=== PATIENT | female | born 1985 ===

== ENCOUNTER 2019-04-09 06:06 | Inpatient (IN) | payer MEDICAID ==
[2019-04-09] MEDS ORDERED: OXYTOCIN 20 UNIT/1000ML DRIP 20,000 MILLIUNITS/1,000 ML BAG IV ONE (07:05)
[2019-04-09] MEDS ORDERED: LACTATED RINGERS 1,000 ML IV ONE (07:52)
[2019-04-09] MEDS ORDERED: OXYTOCIN 20 UNIT/1000ML DRIP 20 UNITS/1,000 ML BAG IV SCH ×2 (08:00→11:00)
[2019-04-09 08:16] LABS: Basophils % (Auto) 0.1 % (0.0-1.8); Eosinophils % (Auto) 0.2 % (0.0-4.3); Hematocrit 35.3 % (30.3-42.9); Hemoglobin 11.9 gm/dl (10.1-14.3); Lymphocytes # (Auto) 1.5 K/mm3 (1.2-5.4); Lymphocytes % (Auto) 8.6 % (13.4-35.0); Mean Corpuscular HGB Conc 34 % (30-34); Mean Corpuscular Volume 88 fl (79-97); Monocytes # (Auto) 0.7 K/mm3 (0.0-0.8); Monocytes % (Auto) 4.2 % (0.0-7.3); Platelet Count 171 K/mm3 (140-440); Red Blood Count 4.03 M/mm3 (3.65-5.03); Red Cell Distribution Width 15.3 % (13.2-15.2)
[2019-04-09] MEDS ORDERED: AMPICILLIN/NS 2 GM/100 ML 2 GM/100 ML BAG IV ONE (08:38)
[2019-04-09 08:39] LABS: Alanine Aminotransferase 10 units/L (7-56); Uric Acid 4.6 mg/dL (3.5-7.6)
[2019-04-09] MEDS ORDERED: MINERAL OIL 30 ML ORAL LIQD ONE (08:51)
[2019-04-09] MEDS ORDERED: MINERAL OIL 30 ML ORAL LIQD PO PRN ×2 (09:00→22:00)
[2019-04-09] MEDS ORDERED: OXYTOCIN DRIP 30,000 MILLIUNITS/500 ML BAG IV ONE (09:06)
[2019-04-09] MEDS ORDERED: LIDOCAINE (2%) 20 MG/1 ML VIAL 20 ML MDV INFILTRATI ONE (09:47)
--- NOTE | 2019-04-09 10:37 | History and Physical Report ---
History of Present Illness Date of examination: 04/09/19 Date of admission: 04/09/19 06:07 Chief complaint: Intense Labor Pains History of present illness: States she got care at [facility] (no records available), States her course was complicated by Anemia and GDM A1. Past History Past Medical History: no pertinent history Past Surgical History: other (arm Sx in 2003) Family/Genetic History: diabetes (Mother and MGM) Social history: no significant social history, single - Obstetrical History Expected Date of Delivery: 05/05/19 Actual Gestation: 36 Week(s) 2 Day(s) : 2 Spontaneous Abortions: 1 Medications and Allergies Allergies Allergy/AdvReac Type Severity Reaction Status Date / Time No Known Allergies Allergy Unverified 04/08/19 10:45 Home Medications Medication Instructions Recorded Confirmed Last Taken Type labetaloL [Labetalol 200mg TAB] 200 mg PO BID 30 Days #60 tablet 04/08/19 Unknown Rx Active Meds: Active Medications Acetaminophen/Hydrocodone Bitart ([place] 5/325) 2 each PO Q6H PRN PRN Reason: Pain, Moderate (4-6) Bisacodyl (Dulcolax) 10 mg WI BID PRN PRN Reason: Constipation Diphenhydramine HCl (Benadryl) 25 mg PO Q6H PRN PRN Reason: Itching Ephedrine Sulfate (Ephedrine Sulfate) 10 mg IV Q2M PRN PRN Reason: Hypotension Ferrous Sulfate (Feosol) 325 mg PO BID CORY Oxytocin/Sodium Chloride (Pitocin/Ns 20 Unit/1000ml Drip) 20 units in 1,000 mls @ 125 mls/hr IV DIRECT CORY Oxytocin/Sodium Chloride (Pitocin/Ns 20 Unit/1000ml Drip) 20 units in 1,000 mls @ 125 mls/hr IV DIRECT CORY Oxytocin/Sodium Chloride (Pitocin/Ns 30 Unit/500ml) 30 units in 500 mls @ 1 mls/hr IV TITR CORY; Protocol Oxytocin/Sodium Chloride (Pitocin/Ns 30 Unit/500ml) 30 units in 500 mls @ 2 mls/hr IV TITR CORY; Protocol Lactated Ringer's (Lactated Ringers) 1,000 mls @ 125 mls/hr IV DIRECT CORY Ampicillin Sodium (Ampicillin/Ns 1 Gm/50 Ml) 1 gm in 50 mls @ 100 mls/hr IV Q4HR CORY; Protocol Ibuprofen (Ibuprofen) 600 mg PO Q6H CORY Lidocaine (Xylocaine 2%) 20 ml INFILTRATI ONCE ONE Stop: 04/09/19 10:26 Magnesium Hydroxide (Milk Of Magnesia) 30 ml PO HS PRN PRN Reason: Constipation Mineral Oil (Mineral Oil) 30 ml PO QHS PRN PRN Reason: Constipation Last Admin: 04/09/19 09:40 Dose: 30 ml Documented by: Mineral Oil (Mineral Oil) 30 ml PO QHS PRN PRN Reason: Constipation Multi-Ingredient Ointment (Lansinoh) 1 applic TP PRN PRN PRN Reason: Sore Nipples Promethazine HCl (Phenergan) 25 mg PO Q6H PRN PRN Reason: Nausea And Vomiting Sodium Chloride (Sodium Chloride Flush Syringe 10 Ml) 10 ml IV PRN NR Terbutaline Sulfate (Brethine) 0.25 mg SUB-Q ONCE PRN PRN Reason: Hyperstimulation/Hypertonicity Terbutaline Sulfate (Brethine) 0.25 mg IVP ONCE PRN PRN Reason: Hyperstimulation/Hypertonicity Witch Ryanne/Glycerin (Tucks Pad) 1 each TP PRN PRN PRN Reason: Hemorrhoid/cleansing/soothing Review of Systems All systems: negative - Vital Signs Vital signs: Vital Signs Pulse BP Pulse Ox 95 H 177/96 98 04/09/19 07:18 04/09/19 07:18 04/09/19 07:18 Temp Pulse Resp BP Pulse Ox 98.8 F 108 H 137/81 99 04/09/19 07:25 04/09/19 10:28 04/09/19 10:28 04/09/19 08:48 - Physical Exam Breasts: Positive: normal Cardiovascular: Regular rate Lungs: Positive: Clear to auscultation, Normal air movement Abdomen: Positive: normal appearance, soft, normal bowel sounds Genitourinary (Female): Positive: normal external genitalia, normal perenium Uterus: Positive: enlarged Anus/Rectum: Positive: normal perianal skin Extremities: Positive: edema (+1) - Obstetrical FHR: category 1 Uterine Contraction Monitor Mode: External Cervical Dilatation: 10 (Leaking a moderate amount of clear fluid) Cervical Effacement Percentage: 100 station: +2 Uterine Contraction Pattern: Regular Uterine Tone Measurement Phase: Resting Uterine Contraction Intensity: Moderate Results Result Diagrams: 04/09/19 07:10 04/09/19 07:10 Abnormal lab results 04/09/19 04/09/19 04/09/19 Range/Units 07:10 07:10 10:38 WBC 17.6 H (4.5-11.0) K/mm3 RDW 15.3 H (13.2-15.2) % Lymph % (Auto) 8.6 L (13.4-35.0) % Seg Neutrophils % 86.9 H (40.0-70.0) % Seg Neutrophils # 15.3 H (1.8-7.7) K/mm3 POC Glucose 141 H (70-105) Lactate Dehydrogenase 280 H (91-180) units/L All other labs normal. Assessment and Plan A: IUP @ 36 2/7 Weeks Category I Tracing GDM A1 Maternal obesity GBS Unknown P: Admit to L&D per Routine Orders GBS Prophylaxis Pitocin Augmentation Anticipate
--- NOTE | 2019-04-09 10:43 | Procedure Note ---
OB Delivery Note - Delivery Date of Delivery: 04/09/19 (0943) Surgeon: NADJA ROTH Estimated blood loss: other (350) - Vaginal Delivery presentation: vertex Delivery position: OA Delivery induction: none Delivery augmentation: pitocin Delivery monitor: external FHT, external uterine Route of delivery: Delivery placenta: spontaneous Delivery cord: 3 umbilical vessels Episiotomy: none Delivery laceration: 1st degree Delivery repair: vicryl Anesthesia: local Delivery comments: of a live 7'2 male over a 1st degree vaginal laceration without pain control with Apgars of 8 and 9 at 0943 on 04/09/2019. Infant directly to maternal abd/chest, skin to skin contact. Spontaneous delivery of placenta complete and intact with Jay side presenting at 0950. Fundus is firm and midline located 5 below the U; Lochia is scant. Delayed cord clamping and cutting; Cord cut by the Father of the Baby. Cord blood collected. Placenta to pathology due to delivery. Vaginal laceration repaired with 2-[address]-1 under local 2% Lidocaine. GBS unknown; no prophylaxis due to rapid delivery. - A at 1 minute: 8 at 5 minutes: 9 Gender: Male (7'2)
[2019-04-09] MEDS ORDERED: OXYTOCIN DRIP 30 UNITS/500 ML BAG IV SCH ×2 (11:00)
[2019-04-09] MEDS ORDERED: diphenhydrAMINE 25 MG CAP PO PRN (11:00)
[2019-04-09] MEDS ORDERED: TERBUTALINE 1 MG/1 ML INJ SUB-Q PRN (11:00)
[2019-04-09] MEDS ORDERED: LIDOCAINE (2%) 20 MG/1 ML VIAL 20 ML MDV INFILTRATI NR (11:00)
[2019-04-09] MEDS ORDERED: TERBUTALINE 1 MG/1 ML INJ IVP PRN (11:00)
[2019-04-09] MEDS ORDERED: WITCH HAZEL/ GLYCERIN PAD TP PRN (11:00)
[2019-04-09] MEDS ORDERED: LACTATED RINGERS 1,000 ML IV SCH (11:00)
[2019-04-09] MEDS ORDERED: PROMETHAZINE 25 MG TAB PO PRN (11:00)
[2019-04-09] MEDS ORDERED: LANOLIN/ZINC/DIMETHICONE (LANSINOH) 7 GM TP PRN (11:00)
[2019-04-09] MEDS ORDERED: ePHEDrine SULFATE 50 MG/1 ML INJ IV PRN (11:00)
[2019-04-09] MEDS ORDERED: AMPICILLIN/NS 1 GM/50 ML 1 GM/50 ML BAG IV SCH (11:00)
[2019-04-09 11:24] LABS: Hepatitis C Virus Antibody Non-Reactive (NonReactive)
[2019-04-09] MEDS: FERROUS SULFATE 325 MG TAB PO SCH (12:37)
[2019-04-09] MEDS: HYDROcodone/ACETAMINOPHEN 5-325 MG TAB PO PRN (12:37)
[2019-04-09] MEDS: IBUPROFEN 600 MG TAB PO SCH ×2 (12:38→19:17)
[2019-04-09] MEDS ORDERED: MAGNESIUM HYDROXIDE (MOM) ORAL LIQD UDC PO PRN (22:00)
[2019-04-10] MEDS: IBUPROFEN 600 MG TAB PO SCH ×4 (00:10→23:46)
[2019-04-10 00:41] LABS: Hematocrit 27.8 % (30.3-42.9); Hemoglobin 9.3 gm/dl (10.1-14.3)
[2019-04-10] MEDS: FERROUS SULFATE 325 MG TAB PO SCH ×2 (10:00→23:45)
--- NOTE | 2019-04-10 10:53 | Progress Note ---
Assessment and Plan A: PP Day #1 GDM A1 Mildly Elevated Blood Pressures P: Follow Routine Orders Continue Accuchecks as ordered Continue GDM Diet Monitor Blood Pressures Subjective - Subjective Date of service: 04/10/19 Interval history: States she got care at [facility] (no records available), States her course was complicated by Anemia and GDM A1. Patient reports: appetite normal, voiding normally, pain well controlled, other (denies HAs, visual chnges, N&V) [place]: doing well, bottle feeding (and ) Objective - Vital Signs Latest vital signs: Vital Signs Temp Pulse Resp BP BP Pulse Ox 04/10/19 08:04 98.0 F 96 H 20 129/79 96 04/10/19 01:41 97.7 F 83 18 134/80 98 04/09/19 20:14 97.4 F L 101 H 20 132/81 96 04/09/19 16:51 98.5 F 91 H 18 140/85 97 04/09/19 12:10 110 H 18 149/92 98 04/09/19 11:30 98.3 F 94 H 20 150/93 Intake and Output 04/09/19 04/10/19 04/10/19 22:59 06:59 14:59 Intake Total 240 240 240 Output Total 1100 Balance -860 240 240 Intake: Oral 240 Intake, Free Water 240 240 Output: Urine 1100 Void 1100 Other: Total, Intake Amount 240 Total, Output Amount 300 # Voids Void 1 # Bowel Movements 1 - Exam Breasts: Present: normal Cardiovascular: Present: Regular rate Lungs: Present: Clear to auscultation, Normal air movement Abdomen: Present: normal appearance, soft, normal bowel sounds Uterus: Present: normal, firm, fundal height below umbilicus Extremities: Present: normal - Labs Labs: Abnormal lab results 04/10/19 Range/Units 00:21 Hgb 9.3 L (10.1-14.3) gm/dl Hct 27.8 L D (30.3-42.9) %
[2019-04-10] MEDS: HYDROcodone/ACETAMINOPHEN 5-325 MG TAB PO PRN (20:45)
[2019-04-11] MEDS: IBUPROFEN 600 MG TAB PO SCH (05:39)
[2019-04-11] MEDS ORDERED: TETANUS,DIPH,PERTUSS(ACELL) VACCINE 0.5 ML SYRINGE IM ONE (06:00)
[2019-04-11] MEDS: FERROUS SULFATE 325 MG TAB PO SCH (10:31)
[2019-04-11] MEDS ORDERED: FLU VACC QUAD 2019-20 (3 YR UP)/PF 60 MCG/0.5 ML SYRINGE IM ONE (12:00)
--- NOTE | 2019-04-11 13:31 | Discharge Summary ---
Providers - Providers Date of Admission: 04/09/19 06:07 Date of discharge: 04/11/19 Attending physician: ABDIAS ESTRELLA MD Primary care physician: ABDIAS ESTRELLA MD Hospitalization Reason for admission: active labor, IUP - Delivery: Episiotomy: none Laceration: 1st degree (healing as expected) Other procedures: none complications: other (Anemia; PIH) Discharge diagnosis: delivery Caroline baby: male Hospital course: See admission H & P; OB delivery summary and PP progress notes Condition at discharge: Stable Disposition: DC-01 TO HOME OR SELFCARE - Discharge Diagnoses (1) spontaneous labor with delivery Status: Acute (2) Anemia Status: Acute Qualifiers: Anemia type: other cause Other causes of anemia: acute posthemorrhagic Qualified Code(s): D62 - Acute posthemorrhagic anemia (3) PIH ( induced hypertension) Status: Acute Plan - Discharge Medications Prescriptions: Ferrous Sulfate [Feosol 325 MG tab] 325 mg PO BID 30 Days #60 tablet - Provider Discharge Summary Activity: routine, no sex for 6 weeks, no heavy lifting 4 weeks, no strenuous exercise Diet: other (Iron rich diet) Instructions: routine Additional instructions: [] Smoking cessation referral if applicable(refer to patient education folder for contact #) [] Refer to [facility]'s [facility] Booklet Call your doctor immediately for: * Fever > 100.5 * Heavy vaginal bleeding ( >1 pad per hour) * Severe persistent headache * Shortness of breath * Reddened, hot, painful area to leg or breast * Drainage or odor from incision. * Keep laceration site clean and dry at all times and follow doctor's instructions regarding bathing/showering - Continue daily oral iron supplementation as directed with OJ - Continue Labetalol 200mg by mouth twice daily (prescription at pharmacy) - F/U at office in 1 week for B/P - Follow up plan Follow up: ABDIAS ESTRELLA MD [Primary Care Provider] - 7 Days Forms: [facility] Discharge Summary
[2019-04-11 17:55] VITALS: BP 140/81
== END 2019-04-11 17:55 | disposition home or self-care (01) | DRG 775 ==
LOC: TRG 06:06 → OBSVTOIN 06:07 → LD 06:07 → TRG 06:14 → OB 11:44
PROVIDERS: ADMIT Obstetrics & Gynecology; ATTEND Obstetrics & Gynecology
PROC: 10E0XZZ Delivery of Products of Conception, External Approach (ICD-10-PCS; principal; 2019-04-09)
PROC: 0HQ9XZZ Repair Perineum Skin, External Approach (ICD-10-PCS; 2019-04-09)
PROC: 3E0234Z Introduction of Serum, Toxoid and Vaccine into Muscle, Percutaneous Approach (ICD-10-PCS; 2019-04-11)
DX: O13.4 Gestational [pregnancy-induced] hypertension without significant proteinuria, complicating childbirth (principal); O60.14X0 Preterm labor third trimester with preterm delivery third trimester, not applicable or unspecified; D62 Acute posthemorrhagic anemia; O99.02 Anemia complicating childbirth; O24.429 Gestational diabetes mellitus in childbirth, unspecified control; O99.214 Obesity complicating childbirth; E66.8 Other obesity; O70.0 First degree perineal laceration during delivery; Z3A.36 36 weeks gestation of pregnancy; Z37.0 Single live birth; Z83.3 Family history of diabetes mellitus; Z23 Encounter for immunization
CPT/HCPCS: 36415; 59025; 76815; 76819; 81001; 82565; 82962; 83615; 84450; 84460; 84550; 85014; 85018; 85025; 85027; 86592; 86706; 86762; 86803; 86850; 86900; 86901; 87086; 87806; 88307; 90471; 90686; 90715; G0378; J0290; J2590; J7120

== ENCOUNTER 2019-11-25 00:03 | Emergency (ER) | payer MEDICAID ==
[2019-11-25 03:54] VITALS: BP 123/75
[2019-11-25 05:33] LABS: Bacteria,Urine 1+ /HPF (Negative); Bilirubin,Urine NEG (Negative); Blood,Urine NEG (Negative); Color,Urine Yellow (Yellow); Mucus,Urine FEW /HPF; Protein,Urine <15 mg/dL mg/dL (Negative); Urobilinogen,Urine < 2.0 mg/dL (<2.0)
[2019-11-25 05:50] LABS: Basophils # (Auto) 0.1 K/mm3 (0.0-0.1); Basophils % (Auto) 0.5 % (0.0-1.8); Eosinophils # (Auto) 0.2 K/mm3 (0.0-0.4); Eosinophils % (Auto) 1.8 % (0.0-4.3); Hematocrit 40.4 % (30.3-42.9); Hemoglobin 13.4 gm/dl (10.1-14.3); Lymphocytes # (Auto) 2.7 K/mm3 (1.2-5.4); Lymphocytes % (Auto) 28.3 % (13.4-35.0); Mean Corpuscular HGB Conc 33 % (30-34); Mean Corpuscular Volume 86 fl (79-97); Monocytes # (Auto) 0.6 K/mm3 (0.0-0.8); Monocytes % (Auto) 6.4 % (0.0-7.3); Platelet Count 307 K/mm3 (140-440); Red Blood Count 4.71 M/mm3 (3.65-5.03); Red Cell Distribution Width 14.7 % (13.2-15.2)
[2019-11-25 05:59] LABS: Blood Urea Nitrogen 13 mg/dL (7-17); Calcium 9.2 mg/dL (8.4-10.2); Hemolysis Index 55
[2019-11-25 06:06] LABS: BUN/Creatinine Ratio 22
--- NOTE | 2019-11-25 06:57 | Emergency Department Report ---
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 Pain is dull achy worse with palpation and range of motion. Reports no suprapubic discomfort. Reports no vaginal bleeding reports no nausea, no vomiting, no hematemesis no hematochezia but does report pain possibly . MD Complaint: back pain Similar Symptoms Previously: No Radiation: none Severity: mild Quality: dull, aching Consistency: constant Improves With: none Worsens With: none - Related Data Previous Rx's Medication Instructions Recorded Last Taken Type labetaloL [Labetalol 200mg TAB] 200 mg PO BID 30 Days #60 tablet 04/08/19 Unknown Rx Ferrous Sulfate [Feosol 325 MG tab] 325 mg PO BID 30 Days #60 tablet 04/11/19 Unknown Rx labetaloL [Labetalol 200mg TAB] 200 mg PO BID tablet 04/11/19 Unknown Rx Allergies Allergy/AdvReac Type Severity Reaction Status Date / Time No Known Allergies Allergy Unverified 04/08/19 10:45 ED Review of Systems ROS: Stated complaint: BACK PAIN Other details as noted in HPI Comment: All other systems reviewed and negative ED Past Medical Hx - Past Medical History Previous Medical History?: No Hx Hypertension: No Hx Congestive Heart Failure: No Hx Diabetes: No Hx Deep Vein Thrombosis: No Hx Renal Disease: No Hx Sickle Cell Disease: No Hx Seizures: No Hx Asthma: No Hx COPD: No Hx HIV: No - Surgical History Past Surgical History?: No - Social History Smoking Status: Never Smoker - Medications Home Medications: Home Medications Medication Instructions Recorded Confirmed Last Taken Type labetaloL [Labetalol 200mg TAB] 200 mg PO BID 30 Days #60 tablet 04/08/19 04/11/19 Unknown Rx Ferrous Sulfate [Feosol 325 MG tab] 325 mg PO BID 30 Days #60 tablet 04/11/19 Unknown Rx labetaloL [Labetalol 200mg TAB] 200 mg PO BID tablet 03/06/20 Unknown Rx ED Physical Exam - General Limitations: Language Barrier General appearance: alert, in no apparent distress - Head Head exam: Present: atraumatic, normocephalic - Eye Eye exam: Present: normal appearance, PERRL, EOMI Pupils: Present: normal accommodation - ENT ENT exam: Present: normal exam, normal orophraynx, mucous membranes moist, TM's normal bilaterally - Neck Neck exam: Present: normal inspection, full ROM - Respiratory Respiratory exam: Present: normal lung sounds bilaterally. Absent: respiratory distress, wheezes, rales, rhonchi, chest wall tenderness, accessory muscle use - Cardiovascular Cardiovascular Exam: Present: regular rate, normal rhythm. Absent: systolic murmur, diastolic murmur, rubs, gallop - GI/Abdominal GI/Abdominal exam: Present: soft, normal bowel sounds. Absent: tenderness, guarding - Extremities Exam Extremities exam: Present: normal inspection - Back Exam Back exam: Present: normal inspection, tenderness, paraspinal tenderness, other (Pain with with Teresa's test. Tenderness to the right sacroiliac joint with palpation.) - Neurological Exam Neurological exam: Present: alert, oriented X3 - Psychiatric Psychiatric exam: Present: normal affect, normal mood - Skin Skin exam: Present: warm, dry, intact, normal color. Absent: rash ED Course Vital Signs 11/25/19 03:47 Temperature 98.2 F Pulse Rate 85 Respiratory 18 Rate Blood Pressure 123/75 O2 Sat by Pulse 99 Oximetry ED Medical Decision Making - Lab Data Result diagrams: 11/25/19 05:06 11/25/19 05:06 Critical care attestation.: If time is entered above; I have spent that time in minutes in the direct care of this critically ill patient, excluding procedure time. ED Disposition Clinical Impression: Lumbago Disposition: DC-01 TO HOME OR SELFCARE Is pt being admited?: No Does the pt Need Aspirin: No Condition: Stable Instructions: Low Back Strain (ED), Lumbar Radiculopathy (ED), (ED) Referrals: PRIMARY CARE,MD [Primary Care Provider] - 3-5 Days
--- NOTE | 2019-11-25 09:56 | Ultrasound Report ---
ULTRASOUND OBSTETRIC Indication: Lower back pain 6 weeks Findings: There is an intrauterine . Gestational sac with the uptake is seen. Tiny pole with hea rtbeat is identified. heart rate is 112 bpm. Gestational sac size is 17 mm corresponding to a 6 week 4 day gestation. The right ovary measures 3.9 cm and contains a 2.8 cm cyst. The left ovary measures 3.2 cm. Small subchorionic bleed is identified. Impression: Single, living intrauterine with estimated sonographic age of 6 weeks, 4 day(s). Signer Name: Alfred Wells MD Signed: 11/25/2019 5:32 AM Workstation Name: [id number]
--- NOTE | 2019-11-25 09:56 | Ultrasound Report ---
ULTRASOUND OBSTETRIC Indication: Lower back pain 6 weeks Findings: There is an intrauterine . Gestational sac with the uptake is seen. Tiny po le with heartbeat is identified. heart rate is 112 bpm. Gestational sac size is 17 mm correspon ding to a 6 week 4 day gestation. The right ovary measures 3.9 cm and contains a 2.8 cm cyst. The left ovary measures 3.2 cm. Small subchorionic bleed is identified. Impression: Single, living intrauterine with estimated sonographic age of 6 weeks, 4 day(s) . Signer Name: Alfred Wells MD Signed: 11/25/2019 6:30 AM Workstation Name: [id number]
== END 2019-11-25 07:34 | disposition home or self-care (01) ==
LOC: ED 00:03
DX: M54.5 Low back pain (principal); Z79.899 Other long term (current) drug therapy
CPT/HCPCS: 36415; 76801; 76817; 80048; 81001; 84702; 85025

== ENCOUNTER 2020-04-13 13:22 | Outpatient (CLI) | payer MEDICAID ==
[2020-04-13] MEDS ORDERED: LACTATED RINGERS 500 ML IV ONE (13:37)
[2020-04-13 14:07] VITALS: BP 108/63
--- NOTE | 2020-04-13 14:24 | Ultrasound Report ---
Limited OB Ultrasound HISTORY: decrease . TECHNIQUE: Grayscale and color imaging performed. COMPARISON: OB ultrasound from 11/25/2019 FINDINGS: Single viable intrauterine gestation with cephalic presentation and HARESH of 19 cm. Placenta is positioned anteriorly with no evidence of placenta previa on this exam. Heart rate is 143 bpm. IMPRESSION: Single viable intrauterine gestation as above Signer Name: Wali Noland MD Signed: 04/13/2020 2:20 PM Workstation Name: [id number]
== END 2020-04-13 15:17 | disposition home or self-care (01) ==
LOC: TRG 13:22 → APU 13:27 → TRG 15:17
PROVIDERS: ATTEND Obstetrics & Gynecology
DX: Z34.92 Encounter for supervision of normal pregnancy, unspecified, second trimester (principal); Z3A.26 26 weeks gestation of pregnancy
CPT/HCPCS: 76815

== ENCOUNTER 2020-06-22 13:20 | Outpatient (CLI) | payer MEDICAID ==
[2020-06-22 14:07] VITALS: BP 121/81
[2020-06-22] MEDS ORDERED: LACTATED RINGERS 1,000 ML IV SCH (15:00)
== END 2020-06-22 19:19 | disposition home or self-care (01) ==
LOC: APU 13:20 → TRG 13:20
DX: Z34.93 Encounter for supervision of normal pregnancy, unspecified, third trimester (principal); Z3A.36 36 weeks gestation of pregnancy
CPT/HCPCS: 36415; 59025; 84112

== ENCOUNTER 2020-07-08 08:48 | Inpatient (IN) | payer MEDICAID ==
--- NOTE | 2020-07-08 10:07 | History and Physical Report ---
History of Present Illness Date of examination: 07/08/20 Date of admission: 07/08/20 08:48 Chief complaint: "I was sent here by my doctor to be induced" History of present illness: 34 y/o presents to [facility] L&D at 38.4 wks for an IOL for pregestational diabetes. She denies VB, UC, or LOF and admits to active FM. Pt initiated her pnc at [facility] at 8 wks. Pt's diabetes was managed with Insulin. Medical hx includes GDM, PIH, and PTD @ 32 wks with prior preg, h/o uti which was treated with Macrobid, and DM with this preg. She was seen by cardio had an abnormal EKG was followed up and had a normal echo. Pt reports hx of lipoma removal on right arm. Family hx of DM. + GBS. She was admitted to L&D for an IOL. 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) Family/Genetic History: diabetes Social history: single, full code - Obstetrical History Expected Date of Delivery: 07/18/20 Actual Gestation: 38 Week(s) 4 Day(s) : 3 Para: 3 Number of Pregnancies: 1 Spontaneous Abortions: 1 Number of Living Children: 1 Medications and Allergies Allergies Allergy/AdvReac Type Severity Reaction Status Date / Time No Known Allergies Allergy Unverified 04/13/20 13:36 Home Medications Medication Instructions Recorded Confirmed Last Taken Type labetaloL [Labetalol 200mg TAB] 200 mg PO BID 30 Days #60 tablet 04/08/19 04/11/19 Unknown Rx Ferrous Sulfate [Feosol 325 MG tab] 325 mg PO BID 30 Days #60 tablet 04/11/19 Unknown Rx labetaloL [Labetalol 200mg TAB] 200 mg PO BID tablet 04/11/19 Unknown Rx Review of Systems All systems: negative Eyes: deferred Ears, nose, mouth and throat: deferred Breasts: normal Genitourinary: normal appearance Rectal Exam: deferred - Vital Signs Vital signs: Vital Signs Pulse BP 113 H 133/92 07/08/20 09:35 07/08/20 09:35 Temp Pulse Resp BP Pulse Ox 102 H 137/89 98 07/08/20 09:49 07/08/20 09:42 07/08/20 09:49 - Physical Exam Breasts: Positive: normal Abdomen: Positive: normal appearance, soft, normal bowel sounds Genitourinary (Female): Positive: normal external genitalia, normal perenium Vulva: both: normal Vagina: Positive: normal moisture Uterus: Positive: enlarged, normal contour, other (gravid) Adnexa: both: normal Anus/Rectum: Positive: normal perianal skin Extremities: Positive: normal - Obstetrical FHR: auscultation normal, category 1 Uterine Contraction Monitor Mode: External Uterine Contraction Pattern: Irregular Uterine Tone Measurement Phase: Resting Uterine Contraction Intensity: Mild Results All other labs normal. Assessment and Plan A: IUP@ 38.4 wks Pregestational DM (takes insulin) + GBS Hx of PIH with last preg Abnormal EKG (Echo wnl) P: Admit to L&D Continuous monitoring GBS protocal Start Pitocin per protocal Pain med/Epidural prn MD to monitor diabetic status Anticipate
[2020-07-08] MEDS ORDERED: OXYTOCIN DRIP 30 UNITS/500 ML BAG IV SCH ×3 (11:00→12:00)
[2020-07-08] MEDS ORDERED: ePHEDrine SULFATE 50 MG/1 ML INJ IV PRN (11:40)
[2020-07-08] MEDS ORDERED: MINERAL OIL 30 ML ORAL LIQD PO PRN (11:40)
[2020-07-08] MEDS ORDERED: fentaNYL 100 MCG/2 ML INJ IV PRN (11:40)
[2020-07-08] MEDS ORDERED: TERBUTALINE 1 MG/1 ML INJ SUB-Q PRN (11:40)
[2020-07-08] MEDS ORDERED: BUTORPHANOL 2 MG/1 ML INJ IV PRN ×2 (11:40)
[2020-07-08] MEDS ORDERED: NALOXONE 0.4 MG/1 ML INJ IV PRN (11:40)
[2020-07-08] MEDS ORDERED: LIDOCAINE (2%) 20 MG/1 ML VIAL 20 ML MDV INFILTRATI ONE (11:40)
[2020-07-08] MEDS ORDERED: ACETAMINOPHEN 325 MG TAB PO PRN (11:40)
[2020-07-08] MEDS ORDERED: ONDANSETRON 4 MG/2 ML INJ IV PRN (11:40)
[2020-07-08] MEDS: LACTATED RINGERS 1,000 ML IV SCH (11:55)
[2020-07-08] MEDS ORDERED: FLUCONAZOLE 100 MG/10 ML ORAL SYRINGE PO SCH (12:00)
[2020-07-08] MEDS ORDERED: AMPICILLIN/NS 2 GM/100 ML 2 GM/100 ML BAG IV ONE (12:12)
[2020-07-08] MEDS: INSULIN REGULAR, HUMAN 100 UNITS/1 ML SUB-Q SCH (13:00)
[2020-07-08] MEDS ORDERED: DEXTROSE 50% IN WATER (25GM) 50 ML SYRINGE IV PRN (13:00)
[2020-07-08 14:09] LABS: Hematocrit 38.3 % (30.3-42.9); Mean Corpuscular HGB Conc 34 % (30-34); Mean Corpuscular Volume 89 fl (79-97); Platelet Count 184 K/mm3 (140-440); Red Blood Count 4.33 M/mm3 (3.65-5.03); Red Cell Distribution Width 16.3 % (13.2-15.2)
[2020-07-08] MEDS: AMPICILLIN/NS 1 GM/50 ML 1 GM/50 ML BAG IV SCH ×2 (16:20→20:21)
[2020-07-08 19:49] LABS: Hemoglobin 12.7 gm/dl (10.1-14.3); Mean Corpuscular HGB Conc 33 % (30-34); Mean Corpuscular Volume 90 fl (79-97); Platelet Count 183 K/mm3 (140-440); Red Blood Count 4.34 M/mm3 (3.65-5.03); Red Cell Distribution Width 16.2 % (13.2-15.2)
[2020-07-08 19:51] LABS: Alanine Aminotransferase 10 units/L (7-56)
[2020-07-08 21:01] LABS: Bacteria,Urine 1+ /HPF (Negative); Bilirubin,Urine NEG (Negative); Blood,Urine NEG (Negative); Color,Urine Yellow (Yellow); Mucus,Urine FEW /HPF; Protein,Urine <15 mg/dL mg/dL (Negative); Urobilinogen,Urine < 2.0 mg/dL (<2.0)
[2020-07-09] MEDS: AMPICILLIN/NS 1 GM/50 ML 1 GM/50 ML BAG IV SCH (04:30)
[2020-07-09] MEDS: NalbUPHINE 10 MG/1 ML INJ IV PRN ×2 (04:36→06:20)
[2020-07-09] MEDS ORDERED: hydrALAZINE 20 MG/1 ML INJ IV ONE (05:56)
[2020-07-09] MEDS ORDERED: hydrALAZINE 20 MG/1 ML INJ ONE (05:56)
[2020-07-09] MEDS ORDERED: MAGNESIUM SULFATE 4 GM/100 ML BAG IV ONE (06:10)
--- NOTE | 2020-07-09 08:26 | Progress Note ---
Subjective - Subjective Date of service: 07/09/20 Interval history: assumed care of patient at 08:00, pt seen and examined on AM rounds pt complete/-2 station FHT 130 baseline, moderate variability [place]: Q 3 minutes Maternal/ well being reassuring overall will allow for passive descent expect Amaya Muir MD Objective - Vital Signs Vital Signs: Vital Signs - 12hr 07/08/20 07/08/20 07/08/20 20:29 20:34 20:39 Temperature Pulse Rate 90 86 67 Blood Pressure O2 Sat by Pulse 99 99 100 Oximetry 07/08/20 07/08/20 07/08/20 20:40 20:44 20:49 Temperature Pulse Rate 64 64 65 Blood Pressure 138/81 O2 Sat by Pulse 99 99 Oximetry 07/08/20 07/08/20 07/08/20 20:54 20:59 21:04 Temperature Pulse Rate 66 64 74 Blood Pressure O2 Sat by Pulse 98 99 99 Oximetry 07/08/20 07/08/20 07/08/20 21:09 21:14 21:19 Temperature Pulse Rate 68 69 87 Blood Pressure O2 Sat by Pulse 99 99 99 Oximetry 07/08/20 07/08/20 07/08/20 21:24 21:29 21:34 Temperature Pulse Rate 75 89 73 Blood Pressure O2 Sat by Pulse 98 99 98 Oximetry 07/08/20 07/08/20 07/08/20 21:39 21:44 21:49 Temperature Pulse Rate 80 80 77 Blood Pressure 136/78 O2 Sat by Pulse 98 98 98 Oximetry 07/08/20 07/08/20 07/08/20 21:54 21:59 22:04 Temperature Pulse Rate 82 82 85 Blood Pressure O2 Sat by Pulse 98 99 98 Oximetry 07/08/20 07/08/20 07/08/20 22:09 22:14 22:19 Temperature Pulse Rate 75 92 H 88 Blood Pressure O2 Sat by Pulse 99 98 98 Oximetry 07/08/20 07/08/20 07/08/20 22:24 22:29 22:34 Temperature Pulse Rate 69 71 78 Blood Pressure O2 Sat by Pulse 98 98 98 Oximetry 07/08/20 07/08/20 07/08/20 22:39 22:44 22:49 Temperature Pulse Rate 81 70 74 Blood Pressure 133/80 O2 Sat by Pulse 99 100 98 Oximetry 07/08/20 07/08/20 07/08/20 22:54 22:59 23:04 Temperature Pulse Rate 79 69 79 Blood Pressure O2 Sat by Pulse 99 100 100 Oximetry 07/08/20 07/08/20 07/08/20 23:09 23:16 23:21 Temperature Pulse Rate 86 95 H 72 Blood Pressure O2 Sat by Pulse 98 99 98 Oximetry 07/08/20 07/08/20 07/08/20 23:26 23:31 23:36 Temperature Pulse Rate 62 67 68 Blood Pressure O2 Sat by Pulse 99 100 99 Oximetry 07/08/20 07/08/20 07/08/20 23:39 23:41 23:46 Temperature Pulse Rate 62 74 68 Blood Pressure 136/89 O2 Sat by Pulse 100 99 Oximetry 07/08/20 07/08/20 07/09/20 23:51 23:56 00:01 Temperature Pulse Rate 87 77 66 Blood Pressure O2 Sat by Pulse 99 98 99 Oximetry 07/09/20 07/09/20 07/09/20 00:06 00:11 00:16 Temperature Pulse Rate 76 63 68 Blood Pressure O2 Sat by Pulse 98 98 98 Oximetry 07/09/20 07/09/20 07/09/20 00:21 00:26 00:31 Temperature Pulse Rate 71 71 68 Blood Pressure O2 Sat by Pulse 98 98 98 Oximetry 07/09/20 07/09/20 07/09/20 00:36 00:40 00:41 Temperature Pulse Rate 72 69 64 Blood Pressure 149/91 O2 Sat by Pulse 98 99 Oximetry 07/09/20 07/09/20 07/09/20 00:46 00:51 00:56 Temperature Pulse Rate 64 69 68 Blood Pressure O2 Sat by Pulse 98 98 98 Oximetry 07/09/20 07/09/20 07/09/20 01:01 01:06 01:11 Temperature Pulse Rate 69 68 69 Blood Pressure O2 Sat by Pulse 98 98 98 Oximetry 07/09/20 07/09/20 07/09/20 01:16 01:21 01:26 Temperature Pulse Rate 65 66 66 Blood Pressure O2 Sat by Pulse 98 99 99 Oximetry 07/09/20 07/09/20 07/09/20 01:31 01:36 01:41 Temperature Pulse Rate 63 65 67 Blood Pressure 174/95 O2 Sat by Pulse 100 99 99 Oximetry 07/09/20 07/09/20 07/09/20 01:46 01:51 01:56 Temperature Pulse Rate 67 71 67 Blood Pressure O2 Sat by Pulse 98 98 99 Oximetry 07/09/20 07/09/20 07/09/20 02:01 02:06 02:11 Temperature Pulse Rate 81 71 72 Blood Pressure O2 Sat by Pulse 98 99 98 Oximetry 07/09/20 07/09/20 07/09/20 02:16 02:21 02:26 Temperature Pulse Rate 77 66 72 Blood Pressure O2 Sat by Pulse 98 99 98 Oximetry 07/09/20 07/09/20 07/09/20 02:31 02:36 02:41 Temperature Pulse Rate 83 71 68 Blood Pressure 144/93 O2 Sat by Pulse 98 99 98 Oximetry 07/09/20 07/09/20 07/09/20 02:46 02:51 02:56 Temperature Pulse Rate 74 74 68 Blood Pressure O2 Sat by Pulse 99 99 99 Oximetry 07/09/20 07/09/20 07/09/20 03:01 03:06 03:11 Temperature Pulse Rate 64 71 73 Blood Pressure O2 Sat by Pulse 99 98 99 Oximetry 07/09/20 07/09/20 07/09/20 03:16 03:21 03:26 Temperature Pulse Rate 84 64 67 Blood Pressure O2 Sat by Pulse 99 98 98 Oximetry 07/09/20 07/09/20 07/09/20 03:31 03:36 03:40 Temperature Pulse Rate 63 63 60 Blood Pressure 141/86 O2 Sat by Pulse 98 98 Oximetry 07/09/20 07/09/20 07/09/20 03:41 03:46 03:51 Temperature Pulse Rate 60 64 93 H Blood Pressure O2 Sat by Pulse 99 98 98 Oximetry 07/09/20 07/09/20 07/09/20 03:56 04:01 04:06 Temperature Pulse Rate 79 82 63 Blood Pressure O2 Sat by Pulse 99 99 99 Oximetry 07/09/20 07/09/20 07/09/20 04:11 04:16 04:29 Temperature Pulse Rate 71 83 66 Blood Pressure O2 Sat by Pulse 99 100 100 Oximetry 07/09/20 07/09/20 07/09/20 04:34 04:39 04:44 Temperature Pulse Rate 54 L 71 71 Blood Pressure 161/91 O2 Sat by Pulse 100 100 99 Oximetry 07/09/20 07/09/20 07/09/20 04:49 04:54 04:59 Temperature Pulse Rate 70 77 63 Blood Pressure O2 Sat by Pulse 100 100 100 Oximetry 07/09/20 07/09/20 07/09/20 05:00 05:04 05:09 Temperature 98.1 F Pulse Rate 86 80 Blood Pressure O2 Sat by Pulse 100 100 Oximetry 07/09/20 07/09/20 07/09/20 05:14 05:19 05:24 Temperature Pulse Rate 73 61 73 Blood Pressure O2 Sat by Pulse 100 100 100 Oximetry 07/09/20 07/09/20 07/09/20 05:27 05:29 05:34 Temperature Pulse Rate 78 75 71 Blood Pressure 167/98 O2 Sat by Pulse 100 100 Oximetry 07/09/20 07/09/20 07/09/20 05:39 05:44 05:49 Temperature Pulse Rate 83 75 86 Blood Pressure 168/99 O2 Sat by Pulse 100 100 100 Oximetry 07/09/20 07/09/20 07/09/20 05:50 05:54 05:59 Temperature Pulse Rate 93 H 100 H 100 H Blood Pressure 169/106 O2 Sat by Pulse 100 100 Oximetry 07/09/20 07/09/20 07/09/20 06:03 06:04 06:09 Temperature Pulse Rate 80 89 89 Blood Pressure 168/100 163/96 O2 Sat by Pulse 100 99 Oximetry 07/09/20 07/09/20 07/09/20 06:14 06:19 06:24 Temperature Pulse Rate 95 H 93 H 89 Blood Pressure O2 Sat by Pulse 100 99 99 Oximetry 07/09/20 07/09/20 07/09/20 06:29 06:32 06:34 Temperature Pulse Rate 85 91 H 103 H Blood Pressure 146/87 O2 Sat by Pulse 99 99 Oximetry 07/09/20 07/09/20 07/09/20 06:39 06:40 06:44 Temperature Pulse Rate 93 H 96 H 102 H Blood Pressure 158/96 O2 Sat by Pulse 99 99 Oximetry 07/09/20 07/09/20 07/09/20 06:49 06:54 06:59 Temperature Pulse Rate 91 H 101 H 94 H Blood Pressure O2 Sat by Pulse 100 99 99 Oximetry 07/09/20 07/09/20 07/09/20 07:00 07:04 07:09 Temperature Pulse Rate 111 H 88 100 H Blood Pressure 142/95 O2 Sat by Pulse 100 99 Oximetry 07/09/20 07/09/20 07/09/20 07:14 07:19 07:24 Temperature Pulse Rate 103 H 98 H 104 H Blood Pressure O2 Sat by Pulse 98 99 97 Oximetry 07/09/20 07/09/20 07/09/20 07:29 07:34 07:39 Temperature Pulse Rate 102 H 95 H 106 H Blood Pressure O2 Sat by Pulse 97 98 97 Oximetry 07/09/20 07/09/20 07/09/20 07:40 07:44 07:49 Temperature Pulse Rate 105 H 100 H 103 H Blood Pressure 135/76 O2 Sat by Pulse 97 96 Oximetry 07/09/20 07/09/20 07/09/20 07:54 07:59 08:04 Temperature Pulse Rate 105 H 98 H 113 H Blood Pressure O2 Sat by Pulse 97 97 97 Oximetry 07/09/20 07/09/20 07/09/20 08:09 08:14 08:19 Temperature Pulse Rate 92 H 116 H 100 H Blood Pressure O2 Sat by Pulse 98 97 98 Oximetry - Labs Labs: Abnormal Labs 07/08/20 07/08/20 07/08/20 09:44 13:24 19:10 RDW 16.3 H 16.2 H POC Glucose 152 H Urine WBC (Auto) 07/08/20 Unknown RDW POC Glucose Urine WBC (Auto) 8.0 H Laboratory Results - last 24 hr 07/08/20 07/08/20 07/08/20 09:44 13:15 13:16 WBC RBC Hgb Hct MCV MCH MCHC RDW Plt Count Creatinine Estimated GFR POC Glucose 152 H 90 Uric Acid AST ALT Lactate Dehydrogenase Urine Color Urine Turbidity Urine pH Ur Specific [place] Urine Protein Urine Glucose (UA) Urine Ketones Urine Blood Urine Nitrite Urine Bilirubin Urine Urobilinogen Ur Leukocyte Esterase Urine WBC (Auto) Urine RBC (Auto) U Epithel Cells (Auto) Urine Bacteria (Auto) Urine Mucus Urine Yeast (Budding) Syphilis IgG Antibody Blood Type O POSITIVE Antibody Screen Negative 07/08/20 07/08/20 07/08/20 13:24 13:24 15:21 WBC 8.8 RBC 4.33 Hgb 13.0 Hct 38.3 MCV 89 MCH 30 MCHC 34 RDW 16.3 H Plt Count 184 Creatinine Estimated GFR POC Glucose 93 Uric Acid AST ALT Lactate Dehydrogenase Urine Color Urine Turbidity Urine pH Ur Specific [place] Urine Protein Urine Glucose (UA) Urine Ketones Urine Blood Urine Nitrite Urine Bilirubin Urine Urobilinogen Ur Leukocyte Esterase Urine WBC (Auto) Urine RBC (Auto) U Epithel Cells (Auto) Urine Bacteria (Auto) Urine Mucus Urine Yeast (Budding) Syphilis IgG Antibody Nonreactive Blood Type Antibody Screen 07/08/20 07/08/20 07/08/20 17:29 19:10 19:10 WBC 10.2 RBC 4.34 Hgb 12.7 Hct 39.0 MCV 90 MCH 29 MCHC 33 RDW 16.2 H Plt Count 183 Creatinine 0.7 Estimated GFR > 60 POC Glucose 83 Uric Acid 5.0 AST 15 ALT 10 Lactate Dehydrogenase 177 Urine Color Urine Turbidity Urine pH Ur Specific [place] Urine Protein Urine Glucose (UA) Urine Ketones Urine Blood Urine Nitrite Urine Bilirubin Urine Urobilinogen Ur Leukocyte Esterase Urine WBC (Auto) Urine RBC (Auto) U Epithel Cells (Auto) Urine Bacteria (Auto) Urine Mucus Urine Yeast (Budding) Syphilis IgG Antibody Blood Type Antibody Screen 07/08/20 07/08/20 07/09/20 20:17 Unknown 03:12 WBC RBC Hgb Hct MCV MCH MCHC RDW Plt Count Creatinine Estimated GFR POC Glucose 85 84 Uric Acid AST ALT Lactate Dehydrogenase Urine Color Yellow Urine Turbidity Slightly-cloudy Urine pH 7.0 Ur Specific [place] 1.013 Urine Protein <15 mg/dl Urine Glucose (UA) Neg Urine Ketones Neg Urine Blood Neg Urine Nitrite Neg Urine Bilirubin Neg Urine Urobilinogen < 2.0 Ur Leukocyte Esterase Lg Urine WBC (Auto) 8.0 H Urine RBC (Auto) 3.0 U Epithel Cells (Auto) 4.0 Urine Bacteria (Auto) 1+ Urine Mucus Few Urine Yeast (Budding) 1+ Syphilis IgG Antibody Blood Type Antibody Screen
[2020-07-09] MEDS ORDERED: miSOPROStol 200 MCG TAB PR SCH (10:00)
[2020-07-09] MEDS ORDERED: OXYTOCIN 10 UNIT/1 ML INJ ONE (10:23)
[2020-07-09] MEDS ORDERED: METHYLERGONOVINE MALEATE 0.2 MG/ML VIAL IM ONE (10:25)
[2020-07-09] MEDS ORDERED: miSOPROStol 200 MCG TAB ONE (10:25)
[2020-07-09] MEDS ORDERED: SODIUM CHLORIDE 0.9% 1000 ML 1,000 ML ONE (10:28)
[2020-07-09] MEDS ORDERED: METHYLERGONOVINE MALEATE 0.2 MG/ML VIAL IM SCH (10:30)
[2020-07-09] MEDS: INSULIN REGULAR, HUMAN 100 UNITS/1 ML SUB-Q SCH ×2 (11:23→18:37)
--- NOTE | 2020-07-09 11:57 | Procedure Note ---
OB Delivery Note - Delivery Date of Delivery: 07/09/20 Surgeon: SAMANTHA PAUL Estimated blood loss: other (1500ml) - Vaginal Delivery position: OA Intrapartum events: hemorrhage Delivery monitor: external FHT, external uterine Route of delivery: Delivery placenta: spontaneous Delivery cord: 3 umbilical vessels Episiotomy: none Delivery laceration: none Anesthesia: none Delivery comments: Patient pushed to deliver over an intact perineum a viable male with weight 3844gms and 8/9. Delivery atraumatic, no complications with delivery of anterior shoulder. Spontaneous cry at delivery. Baby placed on maternal abdomen, delayed cord clamping for ~1 minute, then cord clamped and cut and baby handed to waiting NICU staff. Cord blood obtained. An intact placenta with three vessel cord delivered spontaneously. Immediate PP hemorrhage and atony noted. Atony resolved with bimanual massage, 800mcg [place] cytotec, Methergine 0.2mg IMx1 dose, and oxytocin 10 units IM as well as oxytocin infused fluids. Total EBL 1500ml. I called for two units of PRBC'S stat. Patient remained hemodynamically stable throughout. MGSO4 on hold. Will monitor on Labor and Delivery. All sponge, needle and instrument counts correctx2. Amaya Paul MD
[2020-07-09] MEDS ORDERED: LANOLIN/ZINC/DIMETHICONE (LANSINOH) 7 GM TP PRN (12:00)
[2020-07-09] MEDS ORDERED: ONDANSETRON 4 MG/2 ML INJ IV PRN (12:00)
[2020-07-09] MEDS ORDERED: WITCH HAZEL/ GLYCERIN PAD TP PRN (12:00)
[2020-07-09] MEDS: MAGNESIUM SULFATE 40GM/1000ML 40 GM/1,000 ML BAG IV SCH (15:17)
[2020-07-09] MEDS: LACTATED RINGERS 1,000 ML IV SCH (15:18)
[2020-07-09 17:47] LABS: Hematocrit 41.5 % (30.3-42.9); Hemoglobin 14.1 gm/dl (10.1-14.3)
[2020-07-09 19:28] LABS: Hematocrit 38.7 % (30.3-42.9)
[2020-07-09] MEDS ORDERED: HYPROMELLOSE 0.5% OPHTH SOLN 15 ML OU ONE (19:47)
[2020-07-09] MEDS: FERROUS SULFATE 325 MG TAB PO SCH (22:28)
[2020-07-10] MEDS: IBUPROFEN 600 MG TAB PO SCH ×5 (02:09→18:13)
[2020-07-10] MEDS: LACTATED RINGERS 1,000 ML IV SCH (05:36)
[2020-07-10] MEDS: INSULIN REGULAR, HUMAN 100 UNITS/1 ML SUB-Q SCH ×4 (08:54→22:01)
[2020-07-10] MEDS: FERROUS SULFATE 325 MG TAB PO SCH ×2 (09:17→22:02)
[2020-07-10] MEDS: DOCUSATE SODIUM 100 MG CAP PO SCH ×2 (09:17→22:03)
[2020-07-10] MEDS: MAGNESIUM SULFATE 40GM/1000ML 40 GM/1,000 ML BAG IV SCH (11:06)
[2020-07-11] MEDS: INSULIN REGULAR, HUMAN 100 UNITS/1 ML SUB-Q SCH ×3 (02:36→15:21)
[2020-07-11] MEDS ORDERED: TETANUS,DIPH,PERTUSS(ACELL) VACCINE 0.5 ML SYRINGE IM ONE (06:03)
--- NOTE | 2020-07-11 08:21 | Event Note ---
Date: 07/10/20 Late entry: day 1 doing well S/P vaginal delivery and hemorrhage (s/p blood transfusion) and preeclampsia with severe features. Pregestational diabetes on insulin, which is being managed by MD. Stable, BPs stable. No headache or visual disturbance. Lochia is small to moderate in amount. Fundus is firm and midline. Supplement with iron, observe VS closely.
[2020-07-11 09:26] LABS: Hematocrit 31.6 % (30.3-42.9)
--- NOTE | 2020-07-11 09:38 | Progress Note ---
Assessment and Plan A: day 2 S/P . Preeclampsia with severe features (BPs controlled on Labetalol). Anemia. S/P blood transfusion due to hemorrhage. Pregestational diabetes on insulin (managed by ). Obesity. P: Continue oral iron supplementation. Oral Pepcid. Continue oral Labetalol. Subjective - Subjective Date of service: 07/11/20 Principal diagnosis: day 2 S/P Interval history: Reports mild epigastric discomfort. Started this morning. Will try Pepcid. Denies headache, visual disturbance, chest pain, cough, SOB, leg pain, heavy bleeding, or any other problems. Patient reports: appetite normal, voiding normally, pain well controlled, flatus, ambulating normally, no dizzy ambulation, no nauseated [place]: doing well Objective - Vital Signs Latest vital signs: Vital Signs Temp Pulse Resp BP BP BP Pulse Ox 07/11/20 07:32 98.0 F 95 H 18 121/67 95 07/11/20 05:43 100 H 111/70 97 07/11/20 05:04 98.1 F 86 20 105/66 97 07/11/20 00:46 97.7 F 90 20 113/54 95 07/10/20 22:02 90 122/73 07/10/20 19:58 98.0 F 89 20 107/50 98 07/10/20 15:30 97.6 F 86 18 117/77 94 07/10/20 15:00 91 H 114/66 07/10/20 14:59 98.0 F 90 16 114/66 98 07/10/20 14:55 98 H 100 07/10/20 14:50 84 96 07/10/20 14:45 84 96 07/10/20 14:40 87 97 07/10/20 14:35 82 97 07/10/20 14:30 85 07/10/20 14:25 90 98 07/10/20 14:20 83 96 07/10/20 14:15 85 96 07/10/20 14:10 79 96 07/10/20 14:05 84 97 07/10/20 14:00 85 101/61 96 07/10/20 13:55 84 96 07/10/20 13:50 86 97 07/10/20 13:45 90 96 07/10/20 13:40 82 96 07/10/20 13:35 85 98 06/05 13:30 90 96 06/05 13:25 87 97 06/05 13:20 88 97 05 13:15 91 H 98 06 13:10 98 H 98 07/10/20 13:05 103 H 98 07/10/20 13:00 97 H 103/57 98 05 12:55 95 H 98 07/10/20 12:50 100 H 98 07/10/20 12:45 99 H 98 07/10/20 12:40 112 H 99 07/10/20 12:35 114 H 99 07/10/20 12:30 106 H 99 07/10/20 12:27 97.8 F 07/10/20 12:25 89 98 07/10/20 12:20 94 H 98 07/10/20 12:15 93 H 99 07/10/20 12:10 89 98 07/10/20 12:05 95 H 98 07/10/20 12:00 91 H 98 07/10/20 11:59 92 H 130/77 07/10/20 11:55 94 H 99 07/10/20 11:50 92 H 99 05 11:45 95 H 99 07/10/20 11:40 92 H 99 07/10/20 11:35 100 H 100 07/10/20 11:30 96 H 99 07/10/20 11:25 96 H 99 07/10/20 11:20 96 H 100 07/10/20 11:15 95 H 99 07/10/20 11:10 97 H 99 07/10/20 11:05 96 H 99 07/10/20 11:00 95 H 98 07/10/20 10:59 93 H 119/71 07/10/20 10:55 106 H 98 05 10:50 106 H 99 05 10:45 93 H 99 07/10/20 10:40 102 H 99 07/10/20 10:35 99 H 98 07/10/20 10:30 101 H 99 07/10/20 10:25 101 H 98 /05 10:20 100 H 99 05 10:15 102 H 99 05 10:10 103 H 98 07/10/20 10:05 101 H 99 07/10/20 10:00 99 H 99 07/10/20 09:59 100 H 119/67 07/10/20 09:55 101 H 98 07/10/20 09:50 101 H 100 07/10/20 09:45 102 H 98 07/10/20 09:40 109 H 99 Intake and Output 07/10/20 07/11/20 07/11/20 23:59 07:59 15:59 Intake Total 600 Balance 600 Intake: Oral 240 Intake, Free Water 360 Other: Total, Intake Amount 240 # Voids Void 1 - Exam Cardiovascular: Present: Regular rate Lungs: Present: Clear to auscultation Abdomen: Present: normal appearance, soft. Absent: distention, tenderness, guarding, rigidity Uterus: Present: normal, firm, fundal height below umbilicus. Absent: bogginess, tenderness Extremities: Present: edema (mild edema of feet and ankles bilaterally). Absent: tenderness - Labs Labs: Abnormal lab results 07/08/20 07/10/20 07/10/20 Range/Units 13:16 08:50 11:03 POC Glucose 111 H 143 H (70-105) mg/dL Magnesium (1.7-2.3) mg/dL Crossmatch See Detail 07/10/20 07/10/20 07/10/20 Range/Units 12:19 14:25 21:56 POC Glucose 130 H 121 H (70-105) mg/dL Magnesium 6.00 H (1.7-2.3) mg/dL Crossmatch 07/11/20 Range/Units 01:15 POC Glucose 121 H (70-105) mg/dL Magnesium (1.7-2.3) mg/dL Crossmatch
[2020-07-11] MEDS ORDERED: FAMOTIDINE 20 MG TAB PO ONE (09:51)
[2020-07-11] MEDS: FERROUS SULFATE 325 MG TAB PO SCH ×2 (10:22→23:33)
[2020-07-11] MEDS: DOCUSATE SODIUM 100 MG CAP PO SCH ×3 (10:22→23:34)
[2020-07-11] MEDS: IBUPROFEN 600 MG TAB PO SCH ×3 (15:21→23:35)
[2020-07-12] MEDS: IBUPROFEN 600 MG TAB PO SCH (05:46)
--- NOTE | 2020-07-12 09:27 | Progress Note ---
Assessment and Plan s/p . pt doing well. - Patient Problems (1) Anemia Current Visit: Yes Status: Acute Qualifiers: Anemia type: other cause Other causes of anemia: acute posthemorrhagic Qualified Code(s): D62 - Acute posthemorrhagic anemia (2) PIH ( induced hypertension) Current Visit: No Status: Acute (3) spontaneous labor with delivery Current Visit: No Status: Acute Subjective - Subjective Date of service: 07/12/20 Principal diagnosis: day 2 S/P Patient reports: appetite normal : doing well Objective - Vital Signs Latest vital signs: Vital Signs Temp Pulse Resp BP BP Pulse Ox 07/12/20 08:11 97.6 F 64 18 118/46 96 07/12/20 04:25 98.2 F 97 H 20 140/75 97 07/12/20 00:29 98.1 F 74 20 127/67 99 07/11/20 22:15 125/58 07/11/20 20:55 97.9 F 74 18 125/58 99 07/11/20 17:06 98.5 F 73 18 134/75 95 07/11/20 12:17 98.3 F 86 19 122/78 98 Intake and Output 07/11/20 07/12/20 07/12/20 23:59 07:59 15:59 Intake Total 360 480 Balance 360 480 Intake: Intake, Free Water 360 480 Other: # Voids Void 1 1 - Exam Breasts: Present: normal Cardiovascular: Present: Regular rate Lungs: Present: Clear to auscultation Abdomen: Present: normal appearance Vulva: both: normal Uterus: Present: normal, firm Extremities: Present: normal Deep Tendon Reflex Grade: Normal +2 - Labs Labs: Abnormal lab results 07/11/20 Range/Units 22:04 POC Glucose 106 H (70-105) mg/dL
[2020-07-12] MEDS: DOCUSATE SODIUM 100 MG CAP PO SCH (10:33)
[2020-07-12] MEDS: FERROUS SULFATE 325 MG TAB PO SCH (10:33)
[2020-07-12 12:27] VITALS: BP 132/80
== END 2020-07-12 14:30 | disposition home or self-care (01) | DRG 774 ==
LOC: LD 08:48 → OB 07-10 15:29
PROC: 10E0XZZ Delivery of Products of Conception, External Approach (ICD-10-PCS; principal; 2020-07-09)
PROC: 30233N1 Transfusion of Nonautologous Red Blood Cells into Peripheral Vein, Percutaneous Approach (ICD-10-PCS; 2020-07-09)
DX: O24.429 Gestational diabetes mellitus in childbirth, unspecified control (principal); O72.1 Other immediate postpartum hemorrhage; O99.03 Anemia complicating the puerperium; D62 Acute posthemorrhagic anemia; Z20.822 Contact with and (suspected) exposure to COVID-19; O13.4 Gestational [pregnancy-induced] hypertension without significant proteinuria, complicating childbirth; O99.824 Streptococcus B carrier state complicating childbirth; O99.214 Obesity complicating childbirth; O14.14 Severe pre-eclampsia complicating childbirth; Z83.3 Family history of diabetes mellitus; Z3A.38 38 weeks gestation of pregnancy; Z37.0 Single live birth
CPT/HCPCS: 36415; 81001; 82565; 82962; 83615; 83735; 84450; 84460; 84550; 85014; 85018; 85027; 86592; 86850; 86900; 86901; 86920; 90715; 99211; G0378; G0463; J0290; J0595; J1450; J1815; J2210; J2300; J2590; J3475; J7120; P9016; U0003